=== PATIENT | female | born 1980 | race Hispanic/Latino ===

== ENCOUNTER 2019-06-18 10:21 | Outpatient (CLI) | payer OTHER ==
--- NOTE | 2019-06-18 12:27 | CT ---
EXAM: CT abdomen and pelvis with and without IV contrast following enterography protocol PROVIDED CLINICAL HISTORY: Abdominal pain and bloating for 2 to 3 weeks. History of ulcerative colitis and multiple colonic surg eries. COMPARISON: None FINDINGS: Lung bases are clear. A subcentimeter too small to characterize hypodense lesion is seen in the midportion left kidney. The liver, spleen, pancreas, bilateral adrenal glands, and right kidney and abdominal aorta demonstra te a normal CT appearance. Urinary bladder is partially distended and normal in appearance. Postoperative changes are seen involving a loop of small bowel in the right upper quadrant and right mid abdomen with mild dilatation of the loop of small bowel in the region of postsurgical change. The remaining loops of small bowel are normal in caliber. No bowel wall thickening is seen. Postopera tive changes related to colectomy are noted with a right lower quadrant ostomy in place. Multiple loops of small bowel are seen extending into the pelvis and adjacent to the uterus and adnexal struct ures which limits evaluation of the adnexal structures and uterus. However, again, there is no bowel wall thickening in this region or dilated loops of small bowel. Hypodense cystic appearing stru ctures are seen in what is thought to be related to muscle adjacent ovaries just superior to the uterus likely related to dominant follicles. No free fluid, fluid collection, or lymphadenopathy is seen in the abdomen or pelvis. Nonspecific mil dly prominent lymph node is seen anterior to the right iliac vessels measuring 8 mm which is overall nonspecific. Minimal areas of sclerosis are seen involving the humeral heads bilaterally which could be related to developing osteonecrosis. Follow-up evaluation is recommended. IMPRESSION: 1. Postoperative changes of the abdomen related to colectomy and right lower quadrant ostomy with pos t surgical changes involving a loop of small bowel right upper quadrant and in the right mid abdomen which is mildly dilated, but the remaining loops of small bowel are normal in caliber without bowel wall thickening seen. 2. Adnexal structures as well as uterus and multiple loops of small bowel are closely adjacent to one another within the pelvis limiting adequate evaluation, but the visualized fluid-filled loops of bowel in this region are normal in caliber without bowel wall thickening. Hypodense lesions are seen in this region likely related to adnexal cysts/dominant follicles. 3. Ill-defined minimal sclerotic densities involving each humeral head which could be related to deve loping osteonecrosis. Follow-up evaluation is recommended. 4. No acute findings are seen in the abdomen or pelvis.
== END 2019-06-18 10:22 | disposition home or self-care (01) ==
LOC: CT 10:21
PROVIDERS: ATTEND Internal Medicine Gastroenterology
DX: K51.90 Ulcerative colitis, unspecified, without complications (principal); R10.9 Unspecified abdominal pain; R19.5 Other fecal abnormalities; Z93.3 Colostomy status
CPT/HCPCS: 74178